=== PATIENT | female | born 1995 | race Caucasian/White ===

== ENCOUNTER 2020-06-01 07:57 | Outpatient (CLI) | payer OTHER, SELFPAY ==
--- NOTE | 2020-06-01 08:00 | NM_ITS ---
WS: [id number] NUCLEAR MEDICINE HIDA SCAN HISTORY: RIGHT upper quadrant pain. COMPARISON: None available. TECHNIQUE: The patient was intravenously injected with 7.5 mCi of TC99m Mebrofenin. Immediate imaging over the right upper quadrant was followed by 5 minute image and additional images for a total of 60 minutes. Normal uptake of radiotracer throughout the liver. Activity is not identified within the gallbladder at 120 minutes. There is normal uptake in the liver and normal excretion. Small bowel is identified by 20 minutes. NM/NM hepatobiliary wo phar [id number] IMPRESSION: 1. No common bile duct obstruction. 2. Gallbladder does not fill at 120 minutes. Suspect cystic duct obstruction o r markedly distended gallbladder. Stones were identified in the gallbladder on a prior study ultrasound of 01/08/2017. Please correlate with history to be sure there has not been a prior cholecystectomy.
== END 2020-06-01 07:58 | disposition home or self-care (01) ==
LOC: RAD 07:57
PROVIDERS: PCP Registered Nurse; Visit Provider Surgery
DX: R10.11 Right upper quadrant pain (principal)
CPT/HCPCS: 78226; A9537

== ENCOUNTER 2020-06-07 08:01 | Day surgery (SDC) | payer OTHER, SELFPAY ==
[2020-06-05 15:59] VITALS: BMI 33.3
[2020-06-07] VITALS (12 sets, daily range): BP systolic 108–142; BP diastolic 61–88; PULSE 67–88; RESP 16–22; TEMP 36.3–36.6; O2SAT 94–99
[2020-06-07 08:17] LABS: OR HCG Qualitative Urine Negative (Negative)
[2020-06-07] MEDS: sodium chloride 0.9% 1,000 ML 30 ML IV (08:27)
[2020-06-07] MEDS: scopolamine 1.5 Patch 1 PATCH TRANSDERMA (08:29)
--- NOTE | 2020-06-07 08:37 | ANES.PREANE2 ---
Pre-Anesthetic Assessment Pre-Anesthetic Assessment: Height/Weight: Height 1.63 m Weight 87.997 kg Temp Pulse Resp BP Pulse Ox 97.3 F L 73 18 108/74 97 06/07/20 08:20 06/07/20 08:20 06/07/20 08:20 06/07/20 08:20 06/07/20 08:20 Preop Diagnosis: Chronic cholecystitis Proposed Procedure: Operation Date: 06/07/20 09:30 Proposed Procedures p Laparoscopic poss Open Cholecystectomy 55231 K81.1(Not Applicable) - Joel Cortez MD Familial anesthetic complications: NO hx of anesthesia, sister has PONV Was Beta Neda taken within 24 hours: N/A Last intake: Intake NPO > 8 hrs Last Liquid Date 06/06/20 Last Solid Date 06/06/20 Social: Social History: No alcohol and No tobacco Exam: Pre-Anes Outpt Exam: alert, oriented x 3, clear to auscultation bilaterally and regular rate & rhythm Airway: Cervical ROM: WNL MP: 2 Dentition: Other (missing teeth, braces on) Pulmonary: Pulmonary: None reported CV/HEM: CV/HEM: None reported : : None reported Hepatic: Hepatic: None reported Musc/skel: Musc/skel: None reported Neuropsych: Neuropsych: None reported Anesthetic Plan: ASA status: 1 Anesthesia: General Risk of > 500 ml blood loss (7ml/kg in children): No Meds/Allergies Current Medications: Current Medications Generic Name Dose Route Start Last Admin Trade Name Freq PRN Reason Stop Dose Admin Sodium Chloride 1,000 mls @ 30 ml s/hr 06/07/20 08:15 06/07/20 08:27 Sodium Chloride 0.9% IV 06/08/20 08:14 30 mls/hr .Q24H DEJAH Administration PFSH Anesthesia PFSH: Family History Denies family history of Anesthesia complication Bleeding disorder Social History Smoking and tobacco status: light tobacco smoker Data Anesthesia Other Labs: Laboratory Results - last 48 hr 06/07/20 08:16 Urine HCG, Qual Negative Cardiac Studies: No Data to Display
[2020-06-07] MEDS: midazolam 1 mg/mL INJ 2 mL 2 MG IVP (09:25)
--- NOTE | 2020-06-07 10:28 | W.PM.OPSUD ---
Surgery/Procedure H&P Update DATE OF PROCEDURE: June 07, 2020 DATE H&P PERFORMED: 06/01/20 H&P UPDATE INFORMATION: I have reviewed H&P completed within last 30 days, I have examined patient prior to procedure and No changes to prior documentation PREOP DIAGNOSIS: Chronic cholecystitis PLANNED PROCEDURE: Operation Date: 06/07/20 09:30 Proposed Procedures p Laparoscopic poss Open Cholecystectomy 73874 K81.1(Not Applicable) - Joel Cortez MD
--- NOTE | 2020-06-07 11:20 | PM.OP ---
Operative Report Date of procedure: June 07, 2020 Pre-op Diagnosis: Chronic cholecystitis, cholelithiasis Post-op diagnosis: same Procedure Done: Laparoscopic cholecystectomy Specimens removed/disposition: Gallbladder Surgeon: Joel Cortez Anesthesia: General Estimated blood loss (mL): 10 Condition: stable Disposition: PACU Procedure: The patient was taken to the operating room and was intubated under general anesthesia. After the antibiotic had been administered, the abdomen was prepped and draped in a sterile manner. Using a #15 blade, a 1 centimeter infraumbilical curvilinear incision was made and using an open Michael technique the peritoneal cavity was entered. A 10 millimeter port was placed and 15 millimeters of pneumoperitoneum was created. A 10 millimeter, 30 degrees scope was then introduced. Three 5 millimeter ports were placed in the epigastric, midclavicular and the anterior axillary line two fingerbreadths below the costal margin on the right side under the direct visualization. Ratcheted forceps were introduced into the lateral most port and was used to retract the fundus of the gallbladder cephalad and using forceps the infundibulum of the gallbladder was retracted laterally. Using L-hook cautery the peritoneum overlying the Calot's triangle was opened medially and laterally until the cystic duct and the cystic artery were skeletonized. Dissection was carried along the body of the gallbladder and after ensuring critical view of safety, 4 clips applied on the cystic duct and 3 clips applied on the cystic artery and cut leaving, 3 clips on the remaining portion of the duct and 2 clips on the remaining portion of the artery. The rest of the gallbladder was dissected off the liver using L-hook cautery. There was no bleeding or bile leaking noted from the gallbladder fossa and the clips appeared to be in place. An EndoCatch bag was introduced to remove the gallbladder. All the ports were removed under direct visualization and there was no bleeding noted from the port sites. The fascia of the umbilicus was closed using [id number] 0 Vicryl sutures and the subcutaneous tissue was approximated using 3-0 Vicryl sutures. The skin at all four ports were closed using 4-0 Monocryl and Dermabond. A total of 10 millimeters of 0.5% Marcaine was infiltrated around the port sites. The patient was stable throughout the procedure.
[2020-06-07] MEDS: ondansetron 2 mg/ML SDV 2 mL 4 MG IVP (11:48)
[2020-06-07] MEDS: fentaNYL 50 mcg/mL INJ 2mL IVP (11:51)
[2020-06-07] MEDS: promethazine 25 mg Tablet PO (12:20)
--- NOTE | 2020-06-07 12:24 | SUR.PHASEI ---
1123 PT TO PACU SLEEPY WITH ORAL AIRWAY IN PLACE, VSS ABD SOFT MANUAL ASSIST TO KEEP AIRWAY OPEN, 1148 PT NOW AWAKE ORAL AIRWAY OUT PT C/O OF NAUSEA ON RA NOW , COOL CLOTH TO FOREHEAD SEE MEDS GIVEN 1151 PT NOW COMPLAINS OF ABD PAIN PT MOANS ANDN RESTLESS , SEE PAIN MED GIVEN 1207 PT CONTINUES TO BE NAUSEATED BUT STATES PAIN IS BETTER, DR CALVO AT BEDSIDE, ORDERS RECIEVED FOR PO PHENERGAN WE CAN NOT GIVE IV PER PROTOCOL. PT TO OPS AWAKE ALERT TAKING OCC ICE CHIP HANDOFF AT BEDSIDE OF ABOVE INFORMATION.
[2020-06-07] MEDS: HYDROcodone-acetaminophen 5-325 mg Tablet 1 TAB PO (12:37)
== END 2020-06-07 12:40 | disposition home or self-care (01) ==
PROVIDERS: Anesthesiology; PCP Registered Nurse; Visit Provider Surgery
PROC: 0FT44ZZ Resection of Gallbladder, Percutaneous Endoscopic Approach (ICD-10-PCS; CPT 47562; principal; 2020-06-07 09:30)
DX: K80.11 Calculus of gallbladder with chronic cholecystitis with obstruction (principal); F17.210 Nicotine dependence, cigarettes, uncomplicated
CPT/HCPCS: 47562; 12345; 81025; 84703; 88304; 96374; J0131; J1885; J2250; J2405; J2704; J2710; J2765; J3010; J3490; J7030; Q0169

== ENCOUNTER 2020-06-26 09:01 | Outpatient (CLI) | payer OTHER, SELFPAY ==
--- NOTE | 2020-06-25 | XRR_ITS ---
PROCEDURE INFORMATION: Exam: XR Right Foot Complete Exam date and time: 06/26/2020 9:33 AM Age: 24 years old Clinical indication: Pain; Foot; Right; Additional info: Foot pain TECHNIQUE: Imaging protocol: XR Right foot. Views: 3 or more views. COMPARISON: No relevant prior studies available. FINDINGS: Bones/joints: hindfoot-midfoot and midfoot-forefoot articulations are normal. metatarsals and the phalanges without an acute process. subtalar joint and the tibiotalar joint appears normal. Soft tissues: Normal. XR/XR foot RT min 3V* [id number] IMPRESSION: Normal foot
--- NOTE | 2020-06-25 | XRR_ITS ---
PROCEDURE INFORMATION: Exam: XR Right Ankle Exam date and time: 06/26/2020 9:31 AM Age: 24 years old Clinical indication: Pain; Ankle; Right; Additional info: Pain top of foot, old injury as child TECHNIQUE: Imaging protocol: XR Right ankle. Views: 3 or more views. COMPARISON: No relevant prior studies available. FINDINGS: Bones/joints: Medial and lateral malleoli are normal. Ankle mortise is symmetrical. No fracture. Hindfoot is unremarkable. Tibiotalar joint and subtalar joint normal. Soft tissues: Normal. XR/XR ankle RT min 3V* [id number] IMPRESSION: Normal ankle.
== END 2020-06-26 09:02 | disposition home or self-care (01) ==
LOC: RAD 09:02
PROVIDERS: PCP Registered Nurse; Visit Provider Podiatrist Foot & Ankle Surgery
DX: M79.671 Pain in right foot (principal)
CPT/HCPCS: 73610; 73630

== ENCOUNTER → 2020-08-31 11:43 | Outpatient (BNVA) | payer OTHER, SELFPAY | PROVIDERS: PCP Dermatology; Visit Provider Nurse Practitioner Family | DX: Z11.59 Encounter for screening for other viral diseases (principal) | CPT/HCPCS: 87635 ==

== ENCOUNTER → 2020-09-17 10:36 | Outpatient (BNVA) | payer OTHER, SELFPAY | PROVIDERS: PCP Dermatology; Visit Provider Nurse Practitioner Family | DX: E66.9 Obesity, unspecified (principal) | CPT/HCPCS: 84443 ==

== ENCOUNTER 2020-11-06 13:39 | Outpatient (RCR) | payer OTHER, SELFPAY | END 2020-11-22 23:59 | disposition home or self-care (01) | LOC: SPT 13:39 | PROVIDERS: PCP Registered Nurse; Referring Provider Registered Nurse; Visit Provider Registered Nurse | DX: S13.4XXD Sprain of ligaments of cervical spine, subsequent encounter (principal); V89.2XXD Person injured in unspecified motor-vehicle accident, traffic, subsequent encounter | CPT/HCPCS: 97110; 97162 ==

== ENCOUNTER → 2020-11-07 09:28 | Outpatient (BNVA) | payer OTHER, SELFPAY | PROVIDERS: PCP Registered Nurse; Visit Provider Family Medicine | DX: Z20.828 Contact with and (suspected) exposure to other viral communicable diseases (principal) | CPT/HCPCS: 87635 ==

== ENCOUNTER 2020-11-23 06:00 | Outpatient (RCR) | payer OTHER, SELFPAY | END 2020-12-23 23:59 | disposition home or self-care (01) | LOC: SPT 06:00 | PROVIDERS: PCP Registered Nurse; Referring Provider Registered Nurse; Visit Provider Registered Nurse | DX: S13.4XXD Sprain of ligaments of cervical spine, subsequent encounter (principal); V89.2XXD Person injured in unspecified motor-vehicle accident, traffic, subsequent encounter | CPT/HCPCS: 97110; 97112; 97140; G0283 ==

== ENCOUNTER 2020-12-24 06:00 | Outpatient (RCR) | payer OTHER, SELFPAY | END 2021-01-20 23:59 | disposition home or self-care (01) | LOC: SPT 06:00 | PROVIDERS: PCP Registered Nurse; Referring Provider Registered Nurse; Visit Provider Registered Nurse | DX: S13.4XXD Sprain of ligaments of cervical spine, subsequent encounter (principal); V89.2XXD Person injured in unspecified motor-vehicle accident, traffic, subsequent encounter | CPT/HCPCS: 97110 ==

== ENCOUNTER → 2021-01-18 09:55 | Outpatient (BNVA) | payer OTHER, SELFPAY | PROVIDERS: PCP Registered Nurse; Visit Provider Nurse Practitioner Women's Health | DX: Z01.419 Encounter for gynecological examination (general) (routine) without abnormal findings (principal) | CPT/HCPCS: 88175 ==

== ENCOUNTER 2021-04-02 13:56 | Outpatient (CLI) | payer OTHER, SELFPAY ==
[2021-04-02 14:46] LABS: Basophils % 0.2 %; Eosinophils # 0.1 10^3/uL (0.0-0.8); Eosinophils % 1.1 %; Hemoglobin 12.5 g/dL (11.5-15.3); Lymphocytes # 1.8 10^3/uL (0.8-4.8); Lymphocytes % 19.6 %; Mean Corpuscular HGB Conc 32.9 g/dL (30.0-36.0); Mean Corpuscular Hemoglobin 28.9 pg (28.0-34.0); Mean Platelet Volume 9.2 fL (7.4-10.4); Monocytes # 0.5 10^3/uL (0.2-0.9); Monocytes % 5.2 %; Neutrophils # 6.82 10^3/uL (1.8-7.7); Neutrophils % 73.6 %; Nucleated Red Blood Cells % 0 %; Platelet Count 262 10^3/cmm (130-400); Red Blood Count 4.32 10^6/uL (4.1-5.3); Red Cell Distribution Width 12.6 % (12.1-15.1); White Blood Count 9.3 10^3/uL (4.0-10.0)
[2021-04-02 15:52] LABS: Alanine Aminotransferase 31 U/L (0-33); Albumin Level 4.3 g/dL (3.5-5.2); Alkaline Phosphatase 96 IU/L (35-105); Anion Gap 10.7 (5-19); Aspartate Amino Transferase 17 U/L (0-32); Blood Urea Nitrogen 9 mg/dL (6-20); Calcium 8.6 mg/dL (8.5-10.5); Carbon Dioxide 29 mmol/L (22-29); Chloride 102 mmol/L (98-107); Globulin 2.8 g/dL (1.3-4.6); Glomerular Filtration Rate 86.7 mL/min (90-130); Glucose 92 mg/dL (65-115); Lipase 31 U/L (13-60); Osmolality Calculated 284 mOsm/kg (285-295); Potassium 3.7 mmol/L (3.5-5.1); Sodium 138 mmol/L (136-145); Total Bilirubin 0.2 mg/dL (0.15-1.2); Total Protein 7.1 g/dL (6.6-8.7)
== END 2021-04-02 13:57 | disposition home or self-care (01) ==
PROVIDERS: PCP Registered Nurse; Visit Provider Surgery
DX: R61 Generalized hyperhidrosis (principal)
CPT/HCPCS: 80053; 83690; 85025

== ENCOUNTER 2021-06-06 08:29 | Outpatient (CLI) | payer OTHER, SELFPAY ==
--- NOTE | 2021-06-06 08:45 | MR_ITS ---
WS: [id number] MRI/MRCP OF THE ABDOMEN WITHOUT GADOLINIUM ENHANCEMENT TECHNIQUE: Thin and thick slab MRCP, Axial T2, Coronal MRCP, Axial Dual Echo, and Axial 2-D Fiesta imaging was obtained. Coronal 2-D Fiesta imaging. CLINICAL INFORMATION: R10.11 - Right upper quadrant pain COMPARISON: Ultrasound 2 16,017 FINDINGS: Normal liver. No intrahepatic biliary dilatation. Normal portal vein and splenic vein. Normal spleen. Pancreas is normal in appearance. Normal common bile duct. No significant common bile duct dilatatio n. No filling defects in the common bile duct to suggest choledocholithiasis. Normal IVC and hepatic veins. Normal hepatic parenchyma. No intrahepatic biliary ductal dilatation. Normal pancreatic duct. Normal tapering of the common bile duct distally. No hydronephrosis in either kidney. Normal caliber abdominal aorta. No adenopathy in the upper abdomen. No evidence of biloma or fluid collection. MR/MR MRCP [id number] Impression: 1. Prior cholecystectomy. No evidence of biloma. 2. Normal common bile duct. No filling defects. No evidence of choledocholithi asis. 3. No intrahepatic biliary duct dilatation. Normal liver parenchyma. 4. Normal pancreas and pancreatic duct. 5. No other significant findings.
== END 2021-06-06 08:30 | disposition home or self-care (01) ==
LOC: RADSHAW 08:32
PROVIDERS: PCP Registered Nurse; Visit Provider Surgery
DX: R10.11 Right upper quadrant pain (principal); Z90.49 Acquired absence of other specified parts of digestive tract
CPT/HCPCS: 74181

== ENCOUNTER → 2021-06-28 11:27 | Outpatient (BNVA) | payer OTHER, SELFPAY | PROVIDERS: PCP Registered Nurse; Visit Provider Family Medicine | DX: Z20.828 Contact with and (suspected) exposure to other viral communicable diseases (principal) | CPT/HCPCS: 87635 ==

== ENCOUNTER 2021-07-05 13:37 | Outpatient (CLI) | payer OTHER, SELFPAY ==
--- NOTE | 2021-07-05 13:53 | XR_ITS ---
WS: [id number] Cervical spine, 3 views, 07/05/2021 Clinical Data: BACK PAIN Comparison: None. Findings: No compression fractures are seen. The disc heights are normal. There is no prevertebral so ft tissue swelling. The odontoid is unremarkable. The soft tissues of the neck and the lung apices ar e normal. XR/XR cervical spine 3V* [id number] Impression: Negative cervical spine.
--- NOTE | 2021-07-05 13:53 | XR_ITS ---
WS: [id number] Lumbar spine, AP and lateral views, 07/05/2021 Clinical Data: BACK PAIN Comparison: None. Findings: No compression fractures or subluxation is seen. No disc space narrowing is seen. The transverse proc esses and SI joints are normal. There are clips in the right upper quadrant from a cholecystectomy. XR/XR lumbar spine 2-3V* 11590 Impression: Negative lumbar spine.
== END 2021-07-05 13:38 | disposition home or self-care (01) ==
PROVIDERS: PCP Registered Nurse; Visit Provider Chiropractor
DX: M54.5 Low back pain (principal); M54.2 Cervicalgia
CPT/HCPCS: 72040; 72100

== ENCOUNTER 2021-12-05 12:56 | Outpatient (CLI) | payer OTHER, SELFPAY ==
--- NOTE | 2021-12-05 13:05 | US_ITS ---
WS: [id number] ULTRASOUND EARLY TECHNIQUE: Transabdominal sonography of the pelvis was performed. Followed by transvaginal sonography to better evaluate the uterus and ovaries. CLINICAL INFORMATION: SUPERVISION OF NORMAL LMP: 10/14/2021 Beta hCG: Unknown. FINDINGS: UTERUS AND GESTATIONAL SAC Intrauterine gestations: Single intrauterine gestational sac with pole. Normal cardiac activity. Estimated gestational age: 7w3d Yolk sac: 0.4 cm. [place] rump length (CRL): 1.3 cm. heart motion: 160 BPM. Subchorionic hemorrhage: None. OVARIES Right ovary: Normal. Left ovary: Left ovarian cyst measuring 4.4 x 3.6 cm with a small amount of internal debris. FREE FLUID None. US/US OB <= 14 weeks fetus [id number] IMPRESSION: 1. Single live intrauterine with normal cardiac activity and p ole. 2. Estimated gestational age; 7w3d 3. Estimated delivery July 21, 2022 4. Normal right ovary. Left ovarian cyst measuring 4.4 x 3.6 cm with a small a mount of internal debris. 5. Normal adnexa. 6. No free fluid in the cul-de-sac.
== END 2021-12-05 12:57 | disposition home or self-care (01) ==
LOC: RAD 13:01
PROVIDERS: PCP Registered Nurse; Visit Provider Family Medicine
DX: Z34.80 Encounter for supervision of other normal pregnancy, unspecified trimester (principal); Z3A.01 Less than 8 weeks gestation of pregnancy
CPT/HCPCS: 76801

== ENCOUNTER → 2021-12-09 11:13 | Outpatient (BNVA) | payer OTHER, SELFPAY | PROVIDERS: PCP Registered Nurse; Visit Provider Nurse Practitioner Family | DX: Z20.822 Contact with and (suspected) exposure to COVID-19 (principal) | CPT/HCPCS: 87635 ==

== ENCOUNTER → 2022-04-18 08:12 | Outpatient (BNVA) | payer BC, SELFPAY | PROVIDERS: PCP Registered Nurse; Visit Provider Family Medicine | DX: Z34.80 Encounter for supervision of other normal pregnancy, unspecified trimester (principal) | CPT/HCPCS: 82950 ==

== ENCOUNTER 2022-05-13 15:10 | Outpatient (CLI) | payer BC, SELFPAY ==
[2022-05-13 15:25] VITALS: BP 115/70; PULSE 86
[2022-05-13 15:30] VITALS: RESP 18
[2022-05-13 15:31] VITALS: BMI 39.4
[2022-05-13 15:40] VITALS: BP 110/67; PULSE 83
[2022-05-13 15:55] VITALS: BP 116/69; PULSE 91
== END 2022-05-13 16:22 | disposition home or self-care (01) ==
LOC: OPOB 15:11 → OBGYN 15:12
PROVIDERS: PCP Registered Nurse; Visit Provider Family Medicine
DX: O26.899 Other specified pregnancy related conditions, unspecified trimester (principal); Z3A.00 Weeks of gestation of pregnancy not specified; R10.9 Unspecified abdominal pain
CPT/HCPCS: 59025; 99211

== ENCOUNTER → 2022-06-24 15:53 | Outpatient (BNVA) | payer BC, SELFPAY | PROVIDERS: PCP Registered Nurse; Visit Provider Family Medicine | DX: Z34.80 Encounter for supervision of other normal pregnancy, unspecified trimester (principal) | CPT/HCPCS: 87081 ==

== ENCOUNTER 2022-07-18 13:49 | Inpatient (IN) | payer BC, SELFPAY ==
[2022-07-18] VITALS (44 sets, daily range): BP systolic 86–197; BP diastolic 57–101; PULSE 69–125; RESP 17; TEMP 36.4; O2SAT 99–100; BMI 43.5
[2022-07-18] MEDS: dextrose 5%-lactated ringers 1,000 ML 125 ML IV (14:17)
[2022-07-18] MEDS: oxytocin 30 UNIT/500 ML BAG IV (14:18)
[2022-07-18 15:30] LABS: Basophils % 0.2 %; Eosinophils % 0.4 %; Hematocrit 33.7 % (37.0-47.0); Hemoglobin 10.3 g/dL (11.5-15.3); Lymphocytes # 1.1 10^3/uL (0.8-4.8); Lymphocytes % 12.1 %; Mean Corpuscular HGB Conc 30.6 g/dL (30.0-36.0); Mean Corpuscular Hemoglobin 24.1 pg (28.0-34.0); Mean Corpuscular Volume 78.7 fl (81-99); Mean Platelet Volume 9.9 fL (7.4-10.4); Monocytes # 0.6 10^3/uL (0.2-0.9); Monocytes % 6.2 %; Neutrophils # 7.52 10^3/uL (1.8-7.7); Neutrophils % 80.6 %; Nucleated Red Blood Cells % 0 %; Platelet Count 283 10^3/cmm (130-400); Red Blood Count 4.28 10^6/uL (4.1-5.3); Red Cell Distribution Width 14.4 % (12.1-15.1); White Blood Count 9.3 10^3/uL (4.0-10.0)
[2022-07-18] MEDS: lactated ringers 1,000 ML 999 ML IV (15:49)
--- NOTE | 2022-07-18 16:56 | P.HP_ITS ---
Providers/Chief Complaint Admitting Physician: Eduardo Lieberman MD Primary Care Provider: DAMIAN Ramos Chief Complaint: Induction History of Present Illness Joy Sheppard is a 26 year old @ 39.4 wks by unsure LMP c/w 7 wk US. Her Preg is c/b h/o abnormal BPP at 37 wks (12/31), anxiety/depression - started Sertraline at 22 weeks, Flu A infection - 01/2022, Elevated 1 hour GTT with normal 3-hour GTT. The patient presents for a scheduled elective induction of labor. The patient was 4 cm in the office and being that she lives out of town, it was felt best to schedule an induction of labor if she did not deliver by today. In OB she was noted to be 4 to 5 cm. The patient has been having intermittent contractions. She denies any vaginal bleeding, leakage of fluid, fever, cough, chest pain, shortness of breath, nausea, vomiting, diarrhea, constipation, dysuria. Medications/Allergies Home Medications Medication Instructions Recorded Confirmed Last Taken Type sertraline 25 mg tablet 25 mg PO DAILY 06/24/22 07/14/22 Unknown History Allergies Allergy/AdvReac Type Severity Reaction Status Date / Time No Known Allergies Allergy Verified 04/16/21 09:30 Additional Medication Information Comments: /delivery plan:? - Anesthesia plan:? Epidural Toxoplasm. precautions:? Counseled Physical activity:? Counseled Environment/work hazards: Counseled Travel precautions:? Counseled Nutrition:? Counseled Quit smoking:? Counseled Alcohol/chem use: Counseled Childbirth classes:? - Transmitter Engineer In Charge:? Hospital tour:? Counseled Signs/Sx labor:? Counseled Rhogam needed: No - AB+ counseling:? - Feeding plans:? Breast Cut cord:? to cut the cord. Circumcision:? Yes - It's a boy Lyme car seat:? Owns PP control:? - Consent forms signed? on 07/01/22 PP BTL plans:? Tubal paperwork signed on 07/01 in case of c/s - to get vasectomy if Contractions: Yes - more contractions - woke her up overnight. Baby Active: Yes Bleeding: None Leakage of Fluid: She felt warmth in the shower but no further fluid afterwards. Joy is a 26 y/o @ 39.0 wks by unsure LMP c/w 7 wk US. Her Preg is c/b h/o abnormal BPP at 37 wks (12/31), anxiety/depression - Sertraline at 22 weeks, F samuel Adrian in 01/2022 - PNV ? - CBC 11.2 - Flu shot done previously - got Flu A in January - Tdap done - GBS neg - Closed/50/-2/soft on 06/24/22, 3-4/50/-3/vertex/soft on 07/08/22, 4-5/50/-3 on 07/14 - Elective Induction set for 07/18 at 9am PFSH Acute PFSH: Medical History (Updated 06/21/22 @ 09:07 by Eduardo Lieberman MD) Generalized hyperhidrosis Surgical History (Updated 07/18/22 @ 17:02 by Eduardo Lieberman MD) History of wisdom tooth extraction Status post laparoscopic cholecystectomy (06/07/20) Family History Father Diabetes Hypertension Stroke Hyperlipidemia Heart disease Mother No problems noted. Grandfather Stroke Paternal Hypertension Paternal Diabetes Paternal Sister Diabetes Denies family history of Colon cancer Ovarian cancer Breast cancer Uterine cancer Thyroid disease Social History (Updated 07/18/22 @ 17:03 by Eduardo Lieberman MD) Smoking and tobacco status: never smoked Alcohol intake: never Substance/Drug Use: never Current occupational status: employed Current occupation: Nurse Practitioner Female Reproductive History: : 4 Other PFSH information: Supplemental PFSH Information: Past medical history of sphincter of Oddi dysfunction Vitals/I&O/Wt Last Vital Signs Pulse 109 H 07/18/22 13:41 BP 123/74 07/18/22 13:41 O2 Del Method 07/18/22 13:51 07/18/22 07/18/22 07/18/22 06:59 14:59 22:59 Intake Total 0.483 / 0.483 199.250 / 199.733 Balance 0.483 / 0.483 199.250 / 199.733 Weight last 48 hrs Weight 246 lb Physical Exam Narrative: General: Alert and oriented x3 Eyes: Pupils equal round and reactive to light and accommodation Mouth: Mucous membranes moist, pharynx non-erythematous Cardiac: Regular rate and rhythm without murmurs Lungs: Clear to auscultation bilaterally without wheezes, crackles or rhonchi Abdomen: Soft, non-tender, fundus consistent with gestational age Extremities: Trace edema in the bilateral lower extremities Data : 07/18/22 13:45 A&P Assessment and plan (1) Supervision of normal intrauterine in multigravida: The patient is doing well at this time. We will continue with routine induction of labor starting with IV Pitocin. heart tones are currently in the mid 140s with moderate variability good accelerations. She has a category 1 heart tone tracing. The patient is GBS negative. She may receive a laboring epidural when she is starting to make change. All questions were answered. The patient and her are in agreement with the current plan of care. Status: Acute Attestations 2 Medical Necessity Statement*: The patient will be here for greater than 2 midnights due to routine intrapartum and management of labor and delivery. Coding Level of Care Code Acute Loan Processing Supervisor for Henry Viramontes Diagnoses Supervision of normal intrauterine in multigravida Z34.80
--- NOTE | 2022-07-18 17:10 | ANES.PREANE2 ---
Pre-Anesthetic Assessment Height/Weight: Height 1.6 m Weight 111.584 kg Pulse BP O2 Del Method 109 H 123/74 07/18/22 13:41 07/18/22 13:41 07/18/22 13:51 Preop Diagnosis: labor pains epidural Familial anesthetic complications: none Was Beta Neda taken within 24 hours: N/A Was Clonidine taken within 24 hours: N/A Social No alcohol and No tobacco Exam alert, oriented x 3, clear to auscultation bilaterally and regular rate & rhythm Airway Submandibular: within normal limits Cervical ROM: within normal limits Mallampati: Class II Dentition: full Pulmonary None reported CV/HEM None reported None reported Hepatic None reported GI Gastroesophageal Reflux Disease Metabolic None reported Musc/skel None reported Neuropsych None reported Anesthetic Plan ASA status: 2 Anesthesia: Regional (specify below) Risk of > 500 ml blood loss (7ml/kg in children): No Medications/Allergies Home Medications Medication Instructions Recorded Confirmed Last Taken Type sertraline 25 mg tablet 25 mg PO DAILY 06/24/22 07/14/22 Unknown History Allergies Allergy/AdvReac Type Severity Reaction Status Date / Time No Known Allergies Allergy Verified 04/16/21 09:30 Current Medications Generic Name Dose Route Start Last Admin Trade Name Freq PRN Reason Stop Dose Admin Oxytocin 30 unit in 500 mls @ 1 mls/hr 07/18/22 14:00 07/18/22 15:50 Pitocin IV 13 milliunit/min .Q24H DEJAH 13 mls/hr Titration Protocol 1 MILLIUNIT/MIN Dextrose/Lactated Ringer's 1,000 mls @ 125 mls/hr 07/18/22 14:00 07/18/22 15:49 Dextrose 5%-Lactated Ringers IV 0 mls/hr .Q8H DEJAH Infusion Lactated Ringer's 1,000 mls @ 999 mls/hr 07/18/22 15:40 07/18/22 15:49 Lactated Ringers IV 999 mls/hr .Q1H1M PRN Administration See label comments PFSH Anesthesia Medical History (Updated 06/21/22 @ 09:07 by Eduardo Lieberman MD) Generalized hyperhidrosis Surgical History (Updated 07/18/22 @ 17:02 by Eduardo Lieberman MD) History of wisdom tooth extraction Status post laparoscopic cholecystectomy (06/07/20) Family History Father Diabetes Hypertension Stroke Hyperlipidemia Heart disease Mother No problems noted. Grandfather Stroke Paternal Hypertension Paternal Diabetes Paternal Sister Diabetes Denies family history of Colon cancer Ovarian cancer Breast cancer Uterine cancer Thyroid disease Social History (Updated 07/18/22 @ 17:03 by Eduardo Lieberman MD) Smoking and tobacco status: never smoked Alcohol intake: never Substance/Drug Use: never Current occupational status: employed Current occupation: Nurse Practitioner Supplemental PFSH Information Past medical history of sphincter of Oddi dysfunction Female Reproductive History : 4 Data Anesthesia : 07/18/22 13:45 Short CBC 07/18/22 Range/Units 13:45 WBC 9.3 (4.0-10.0) 10^3/uL Hgb 10.3 L (11.5-15.3) g/dL Hct 33.7 L (37.0-47.0) % MCV 78.7 L (81-99) fl Plt Count 283 (130-400) 10^3/cmm Neut % (Auto) 80.6 % Neut # (Auto) 7.52 (1.8-7.7) 10^3/uL Cardiac Studies: No Data to Display
--- NOTE | 2022-07-18 17:44 | P.ANES_ITS ---
Anesthesia Procedures Procedure/Date: 07/18/22 epidural Procedure Narrative: epidural complete, bolus given, epidural pump initiated with CONTINUOUS PICKLING LINE PICKLER education given, vitals taken during procedure using OBIX system and satisfactory throughout, patient admits to decrease pain, report of procedure to OB RN Epidural: Time Out Performed: Yes Consents Signed: Procedure Consent Consent: requested by attending/covering physician, from patient, risks and benefits reviewed and patient agrees to proceed Lumbar Level: L3-L4 Epidural position: sitting Epidural procedure: sterile prep of area, 1% lidocaine to numb the area (3 mL), 18 g needle, negative for paresthesia passed, neg for paresthesia, test dose given, 1.5% xylocaine 1:200k epi (5 mL), 0.2% Ropivacaine bolus ml (5 mL), placed PCEA, no systemic response, sterile dressing applied, L.U.D. no apparent complications and 0.2% Ropiavacaine @ mls/hr (13 mL/hr)
--- NOTE | 2022-07-18 21:20 | P.PCNOB_ITS ---
Delivery Note: Date of delivery: July 18, 2022 Pre-delivery diagnoses: 1. Intrauterine at 39.4 weeks gestation 2. Anxiety on sertraline 3. Influenza A infection in January 2022 4. Elevated 1 hour glucose tolerance test with normal 3-hour glucose tolerance test 5. Anemia 6. Elective induction Post-delivery diagnoses: 1. Intrauterine status post spontaneous vaginal delivery at 39.4 weeks gestation 2. Anxiety on sertraline 3. Influenza A infection in January 2022 4. Elevated 1 hour glucose tolerance test with normal 3-hour glucose tolerance test 5. Anemia 6. Delivery of healthy male weighing 8 pounds 12 ounces with Apgars of 5 and 9 7. Shoulder dystocia x1 minute Procedure: Spontaneous vaginal delivery Delivering Physician: Eduardo Lieberman MD Estimated blood loss (mL): 100 Findings: 1. Intact placenta with a central umbilical cord insertion site 2. Shoulder dystocia x1 minute Pre-Delivery Course: Joy Sheppard is a 26 year old G4 now P3 status post spontaneous vaginal delivery@ 39.4 wks by unsure LMP c/w 7 wk US. Her Preg was c/b h/o abnormal BPP at 37 wks (12/31), anxiety/depression - started Sertraline at 22 weeks, Flu A infection - 01/2022, Elevated 1 hour GTT with normal 3-hour GTT. The patient was 5 cm dilated and was brought in for elective induction of labor due to living out of town. She was GBS negative. The patient was started on IV Pitocin at approximately 1 PM on 07/18/2022. The patient had good contractions and received a laboring epidural. The patient had spontaneous rupture membranes at 1947 on 07/18/2022. Clear fluid was noted. The patient continued to make change and was complete by 2043 on 07/18/2022. Delivery: The patient began pushing at 2045 on 07/18/2022. The patient pushed well and the head descended well. The head delivered in the OA position at 2050 on 07/18/2022. A nuchal cord was noted and this was reduced. The rest of the infant then was difficult to deliver and the shoulders were noted to be laterally placed with the right being slightly superior. Counter pressure was placed on the infant's head to try and remove the left shoulder. It did not budge. Downward pressure was then placed on the head to deliver the right shoulder and it moved slowly but then stopped. The nurses were assisting with Juanis maneuver. After 2 attempts each of the above, 1 finger was then placed behind the right arm and the arm was swept medially across the 's chest and with downward pressure on the head, the right shoulder delivered. The left shoulder then delivered with steady pressure. The rest of the delivered with steady traction. The 's mouth and nose were bulb suctioned by myself. The infant took a breath immediately after delivery that was weak in nature. The was placed on the mother's chest where the nurses were awaiting to care for him. The cord was then clamped quickly by myself and cut by the 's father. The infant was then taken to the warmer where he began to breathe spontaneously after moderate stimulation. The estimated time of shoulder dystocia was 1 minute. Cord blood was obtained. The cord was then drained of blood. Traction was placed on the cord and the uterus was massaged. The placenta delivered at 2056 on 07/18/2022 without complication. The placenta was noted to be intact with a central umbilical cord insertion site. The cervix was inspected and no lacerations were noted. The vaginal wall was inspected and no lacerations were noted. The uterus was massaged and the patient had very little bleeding. Currently both the mother and are doing very well. History History History 4 Term 3 0 Miscarriages/Ectopic 1 Living Children 3 Past Pregnancies Del. Date GA/Weeks Outcome Route Wt Inf Gender Labor Lgth Comp. Anesth esia Location 01/21/13 spontaneous Vaginal 04/17/16 37 live - Vaginal 7 lb 2.5 oz Male 16 [facility] 11/09/17 37 live - full term Vaginal 6 lb 9.5 oz Female 8 [facility] A&P Assessment and plan (1) Spontaneous vaginal delivery: Status: Acute (2) Shoulder dystocia during labor and delivery: Status: Acute Coding Level of Care Code Acute Apron Cleaner for Iang Fwloni Diagnoses Spontaneous vaginal delivery O80 Shoulder dystocia during labor and delivery O66.0
[2022-07-19] VITALS (9 sets, daily range): BP systolic 96–136; BP diastolic 67–92; PULSE 70–111; RESP 16–18; TEMP 36.4–36.8; O2SAT 98
[2022-07-19] MEDS: acetaminophen 325 mg Tablet 650 MG PO (01:57)
--- NOTE | 2022-07-19 07:50 | ANE.PACU2 ---
Inpatient post-anesthesia follow up: Airway intact: Yes Vital signs: Temperature 97.7 F Pulse Rate 79 Respiratory Rate 17 Blood Pressure 106/67 Pulse Oximetry 99 Oxygen Delivery Me thod Room Air Oxygen Flow Rate Fraction of Inspir ed Oxygen Hydration adequate: Yes Nausea and vomiting: No Pain level: 5 Mental status: Baseline Additional Comments: Patient up, talking with bedside RN in laughing mood/discourse, walking around room. Has no complaints, satisfied with labor analgesia, happy with care.
[2022-07-19] MEDS: HYDROcodone-acetaminophen 5-325 mg Tablet PO ×3 (08:06→20:58)
[2022-07-19] MEDS: docusate sodium 100 mg Capsule PO (08:06)
[2022-07-19] MEDS: prenatal vitamin Capsule 1 CAP PO (08:06)
[2022-07-19] MEDS: ibuprofen 800 mg tablet PO ×3 (08:06→20:57)
[2022-07-19] MEDS: lanolin oint 7 gm 1 APPLIC TOPICAL (08:10)
--- NOTE | 2022-07-19 10:17 | PM.DCS ---
Discharge Providers Date of Admission: 07/18/22 13:49 Date of Discharge: July 19, 2022 Attending Provider at Admission: Eduardo Lieberman MD Attending Provider at Discharge: Eduardo Lieberman MD Primary Care Provider: DAMIAN Ramos Diagnoses at Discharge Discharge Diagnosis (1) Spontaneous vaginal delivery: Status: Acute (2) Shoulder dystocia during labor and delivery: Status: Acute Other Information Additional DC diagnoses/information: 1.? Intrauterine status post spontaneous vaginal delivery at 39.4 weeks gestation 2.? Anxiety on sertraline 3.? Influenza A infection in January 2022 4.? Elevated 1 hour glucose tolerance test with normal 3-hour glucose tolerance test 5.? Anemia 6.? Delivery of healthy male weighing 8 pounds 12 ounces with Apgars of 5 and 9 7.? Shoulder dystocia x1 minute? Reason for Visit Reason for Visit: Induction Brief History: Joy Sheppard is a 26 year old G4 now P3 status post spontaneous vaginal delivery@ 39.4 wks by unsure LMP c/w 7 wk US. Her Preg was c/b h/o abnormal BPP at 37 wks (12/31), anxiety/depression - started Sertraline at 22 weeks, Flu A infection - 01/2022, Elevated 1 hour GTT with normal 3-hour GTT. Hospital Course Hospital Course The patient was 5 cm dilated and was brought in for elective induction of labor due to living out of town.? She was GBS negative.? The patient was started on IV Pitocin at approximately 1 PM on 07/18/2022.? The patient had good contractions and received a laboring epidural.? The patient had spontaneous rupture membranes at 1947 on 07/18/2022.? Clear fluid was noted.? The patient continued to make change and was complete by 2043 on 07/18/2022. The patient began pushing at 2045 on 07/18/2022.? The patient pushed well and the head descended well.? The head delivered in the OA position at 2050 on 07/18/2022.?There was a one minute shoulder dystocia but the did well without needing any resuscitation outside of stimulation. The patient did not have any tears. , the patient is doing well and her bleeding is decreasing well. She is breast-feeding well. Her pain is well controlled. She is ambulating, voiding, passing gas and tolerating food by mouth. We will continue with routine care and plan for discharge this evening as long as she is doing well. The patient is to follow-up with me in 6 weeks or sooner if needed. Physical Exam Narrative: General: Alert and oriented x3 Cardiac: Regular rate and rhythm without murmurs Lungs: Clear to auscultation bilaterally without wheezes, crackles or rhonchi Abdomen: Soft, mild tenderness over uterus. The uterus is firm and 2 cm below the umbilicus after massage. Extremities: +1 edema in the bilateral lower extremities Urinary Catheter Management: Montoya: Cath Placed During This Visit: yes, but has since been removed by the nurse Reason for Continuing Indwelling Catheter: Decision to DC Catheter Urinary Catheter Date of Insertion: 07/18/22 Urinary Catheter Time of Insertion: 18:04 Date Urinary Catheter Removed: 07/18/22 Time Urinary Catheter Discontinued: 20:45 Discharge Data Studies Completed and Pending Pending at discharge Category Date Time Status Hemagram Timed Lab 07/19/22 09:19 Uncollected Laboratory Results WBC 9.3 10^3/uL (4.0-10.0) 07/18/22 13:45 RBC 4.28 10^6/uL (4.1-5.3) 07/18/22 13:45 Hgb 10.3 g/dL (11.5-15.3) L 07/18/22 13:45 Hct 33.7 % (37.0-47.0) L 07/18/22 13:45 MCV 78.7 fl (81-99) L 07/18/22 13:45 MCH 24.1 pg (28.0-34.0) L 07/18/22 13:45 MCHC 30.6 g/dL (30.0-36.0) 07/18/22 13:45 RDW 14.4 % (12.1-15.1) 07/18/22 13:45 Plt Count 283 10^3/cmm (130-400) 07/18/22 13:45 MPV 9.9 fL (7.4-10.4) 07/18/22 13:45 Neut % (Auto) 80.6 % 07/18/22 13:45 Lymph % (Auto) 12.1 % 07/18/22 13:45 [place] % (Auto) 6.2 % 07/18/22 13:45 Eos % (Auto) 0.4 % 07/18/22 13:45 Baso % (Auto) 0.2 % 07/18/22 13:45 Neut # (Auto) 7.52 10^3/uL (1.8-7.7) 07/18/22 13:45 Lymph # (Auto) 1.1 10^3/uL (0.8-4.8) 07/18/22 13:45 [place] # (Auto) 0.6 10^3/uL (0.2-0.9) 07/18/22 13:45 Eos # (Auto) 0.0 10^3/uL (0.0-0.8) 07/18/22 13:45 Baso # (Auto) 0.0 10^3/uL (0.0-0.1) 07/18/22 13:45 Nucleated RBC % (auto) 0 % 07/18/22 13:45 Nucleated RBCs # 0.0 /100WBC 07/18/22 13:45 Vitals Last Vital Signs Temp 97.7 F 07/19/22 07:13 Pulse 79 07/19/22 07:13 Resp 17 07/19/22 07:13 BP 106/67 07/19/22 07:13 Pulse Ox 99 07/18/22 17:39 O2 Del Method 07/19/22 00:00 Discharge Plan Discharge Patient Disposition: Home Condition: Good Prescriptions: New hydrocodone-acetaminophen 5-325 mg Tablet 1 tab PO Q6H PRN (Reason: Moderate To Severe Pain) Qty: 10 0RF ferrous sulfate 325 mg (65 mg iron) tablet 325 mg PO BID Qty: 30 0RF ibuprofen 800 mg Tablet 800 mg PO TID Qty: 60 0RF Continued sertraline 25 mg tablet 25 mg PO DAILY Discharge Orders: Discharge Order (Routine); Ordered 07/19/22 Ordered By: Eduardo Lieberman Referrals: Eduardo Lieberman MD [Physician] - 6 Weeks Discharge Diet: Usual diet Discharge Activity: Resume usual activity Patient Instructions: Depression (DC), Bleeding (DC), Preeclampsia and Eclampsia After Delivery (GEN), OB Discharge Report, OB Food/Drug Interaction Guide, Opioid Safety, OB Home Care, OB [employer] Parent Packet, OB Vaginal Deliveries Activity Restrictions/Additional Instructions: Nothing per vagina for 6 weeks. If you have any concerns prior to your appointment, please feel free to call Dr. Lieberman at [facility] for further recommendations. Discharge Attestations Time Spent in Discharge Care*: less than 30 min Quality Metrics Clinical Quality Measures [ No reported AMI, CVA or VTE this stay] Coding Level of Care Code Acute Chg FW DC note Diagnoses Spontaneous vaginal delivery O80 Shoulder dystocia during labor and delivery O66.0
[2022-07-19 16:26] LABS: Hematocrit 31.1 % (37.0-47.0); Hemoglobin 9.5 g/dL (11.5-15.3); Mean Corpuscular HGB Conc 30.5 g/dL (30.0-36.0); Mean Corpuscular Hemoglobin 24.1 pg (28.0-34.0); Mean Corpuscular Volume 78.9 fl (81-99); Mean Platelet Volume 9.7 fL (7.4-10.4); Platelet Count 253 10^3/cmm (130-400); Red Blood Count 3.94 10^6/uL (4.1-5.3); Red Cell Distribution Width 14.4 % (12.1-15.1); White Blood Count 9.3 10^3/uL (4.0-10.0)
== END 2022-07-19 22:30 | disposition home or self-care (01) | DRG 807 ==
LOC: OPOB 13:49 → OBGYN 13:49
PROVIDERS: Admitting Provider Family Medicine; PCP Registered Nurse; Visit Provider Family Medicine
DX: O99.344 Other mental disorders complicating childbirth (principal); Z37.0 Single live birth; F41.8 Other specified anxiety disorders; O66.0 Obstructed labor due to shoulder dystocia; O99.02 Anemia complicating childbirth; D64.9 Anemia, unspecified; O69.81X0 Labor and delivery complicated by cord around neck, without compression, not applicable or unspecified; O28.8 Other abnormal findings on antenatal screening of mother; Z3A.39 39 weeks gestation of pregnancy; Z79.899 Other long term (current) drug therapy
CPT/HCPCS: 36415; 51702; 59025; 85025; 85027

== ENCOUNTER → 2022-12-26 10:31 | Outpatient (BNVA) | payer BC, SELFPAY | PROVIDERS: PCP Registered Nurse; Visit Provider Nurse Practitioner Women's Health | DX: Z30.9 Encounter for contraceptive management, unspecified (principal); Z12.4 Encounter for screening for malignant neoplasm of cervix; Z30.430 Encounter for insertion of intrauterine contraceptive device | CPT/HCPCS: 81025; 88175 ==

== ENCOUNTER 2023-10-22 09:23 | Outpatient (CLI) | payer BC, SELFPAY ==
--- NOTE | 2023-10-22 09:32 | US_ITS ---
WS: [id number] ULTRASOUND BREAST BILATERAL TECHNIQUE: Ultrasound bilateral breast focused area of concern. CLINICAL INFORMATION: BREAST LUMP COMPARISON: None. FINDINGS: RIGHT BREAST: Ultrasound RIGHT breast 1 o'clock position in the area of patient concern 4 cm from th e nipple. Incidental small lymph node in this area measuring 7 mm. No other suspicious findings in th e RIGHT breast in the areas of concern near the 1 o'clock position 8 cm from the nipple.. LEFT BREAST: Ultrasound LEFT breast between the 12 and 1:00 positions 4 cm from the nipple.No underly ing cystic or solid lesions. Normal underlying parenchymal tissue. No suspicious findings. IMPRESSION: No suspicious findings in the areas of concern Recommend annual screening mammography age 40
== END 2023-10-22 09:24 | disposition home or self-care (01) ==
LOC: RAD 09:23
PROVIDERS: PCP Registered Nurse; Visit Provider Registered Nurse
DX: N63.21 Unspecified lump in the left breast, upper outer quadrant (principal); N63.12 Unspecified lump in the right breast, upper inner quadrant
CPT/HCPCS: 76642